=== PATIENT | female | born 1980 | race Caucasian/White ===

== ENCOUNTER 2019-08-25 23:30 | Emergency (ER) | payer MEDICAID, SELFPAY ==
--- NOTE | ~2019-08-25 | CT_ITS ---
EXAMINATION: CT facial bones wo con DATE: 08/26/2019 00:26 INDICATION: Head injury. TECHNIQUE: Computed tomography (CT) of the facial bones and maxillofacial region was performed withou t intravenous contrast. Automated exposure control and iterative reconstruction technique were employ ed. The dose-length product was 473.48 mGy-cm. COMPARISON: None. FINDINGS: There is left frontal scalp soft tissue swelling. There is mild mucosal thickening in the e thmoid and right maxillary sinuses. 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 There is rightwar d deviation of the nasal septum. No fracture. IMPRESSION: 1. No fracture. Reviewed, dictated and finalized at location A. IMPRESSION: 1. No fracture.
--- NOTE | ~2019-08-25 | CT_ITS ---
EXAMINATION: CT cervical spine wo con DATE: 08/26/2019 00:26 INDICATION: Head injury. TECHNIQUE: Computed tomography (CT) of the cervical spine was performed without intravenous contrast. Automated exposure control and iterative reconstruction technique were employed. The dose-length pro duct was 214.25 mGy-cm. COMPARISON: None FINDINGS: There is mild scarring at the lung apices. There is 10 degrees dextroscoliosis of cervical spine. Vertebral body heights and intervertebral disc heights are normal. There is a subchondral cyst in C1 left lateral mass. There is material in the esophagus. The following disc levels are specifica lly discussed: C2-C3: There is no uncovertebral joint osteoarthritis. There is mild bilateral facet joint osteoarthr itis. There is no neural foraminal stenosis. There is no central canal stenosis. C3-C4: There is mild right uncovertebral joint osteoarthritis. There is no facet joint osteoarthritis . There is no neural foraminal stenosis. There is no central canal stenosis. C4-C5: There is no uncovertebral joint osteoarthritis. There is no facet joint osteoarthritis. There is no neural foraminal stenosis. There is no central canal stenosis. C5-C6: There is no uncovertebral joint osteoarthritis. There is mild left facet joint osteoarthritis. There is no neural foraminal stenosis. There is no central canal stenosis. C6-C7: There is no uncovertebral joint osteoarthritis. There is no facet joint osteoarthritis. There is no neural foraminal stenosis. There is no central canal stenosis. C7-T1: There is no uncovertebral joint osteoarthritis. There is mild bilateral facet joint osteoarthr itis. There is no neural foraminal stenosis. There is no central canal stenosis. IMPRESSION: 1. No fracture. 2. Cervical dextroscoliosis. 3. Mild cervical spondylosis. Reviewed, dictated and finalized at location A.
--- NOTE | ~2019-08-25 | CT_ITS ---
EXAMINATION: CT brain wo con DATE: 08/26/2019 00:25 INDICATION: Unresponsive. TECHNIQUE: Computed tomography (CT) of the head was performed without intravenous contrast. The mA wa s adjusted according to patient size. Iterative reconstruction technique was employed. The dose-lengt h product was 681.00 mGy-cm. COMPARISON: None FINDINGS: There is no intracranial hemorrhage, acute infarction, or abnormal intracranial mass lesion . The ventricles are normal in size. There is mild mucosal thickening in the ethmoid sinuses. The orb its are normal. The mastoid air cells are normal. There is left frontal scalp soft tissue swelling. IMPRESSION: 1. Normal brain. Reviewed, dictated and finalized at location A. IMPRESSION: 1. Normal brain.
--- NOTE | ~2019-08-25 | XR_ITS ---
EXAMINATION: XR chest 1V portable DATE: 08/26/2019 01:28 INDICATION: Intubation. TECHNIQUE: A single frontal view of the chest was obtained. COMPARISON: None. FINDINGS: The chest demonstrates clear lungs without pneumonia, pleural effusion, or pneumothorax. Th e heart size is normal. The endotracheal tube tip is 9 mm above the payam directed toward the right mainstem bronchus. IMPRESSION: 1. Endotracheal tube tip 9 mm above the payam. Retraction is recommended. Reviewed, dictated and finalized at location A.
[2019-08-25] MEDS: NALOXONE HCL INJ 2 MG/2 ML AMP IV PUSH (23:32)
[2019-08-25 23:40] VITALS: BP 116/61; PULSE 147; RESP 14; TEMP 36.3; O2SAT 97
[2019-08-25] MEDS: SODIUM CHLORIDE 0.9% IV 1,000 ML 999 ML IV CONT (23:43)
[2019-08-25] MEDS: SODIUM CHLORIDE 0.9% IV 1,000 ML 100 ML IV CONT (23:55)
--- NOTE | 2019-08-26 00:03 | ECG_ITS ---
Measurements Intervals [place] Rate: 124 P: 63 TX: 128 QRS: 58 QRSD: 71 T: 55 QT: 333 QTc: 480 Interpretive Statements SINUS TACHYCARDIA MINIMAL Q WAVES- ANTEROLAT/INF LEADS BASELINE ARTIFACT- AVL, V1-V2 ABNORMAL ECG Electronically Signed On 08-26-2019 7:17:00 CDT by Addi Mccoy D.O.
--- NOTE | 2019-08-26 00:03 | ED.AMS ---
HPI - Altered Mental Status General Chief Complaint: Overdose Stated Complaint: overdose Time Seen by Provider: 08/25/19 23:43 History of Present Illness HPI narrative: 38-year-old female patient is brought to the ER by her and dropped here with the chief complaints of being unresponsive. Apparently the took off and has left a number behind for us to call him for any details. patient is unable to provide any history because of her mental status changes MD complaint: decreased responsiveness Related Data Home Medications Medication Instructions Recorded Confirmed ibuprofen [Motrin IB] 600 mg PO Q6H PRN 08/26/19 08/26/19 mexiletine 150 mg PO BID 08/26/19 08/26/19 oxycodone-acetaminophen 1 tablet PO Q4H PRN MDD 4 08/26/19 08/26/19 tramadol 50 mg PO Q4H 08/26/19 08/26/19 Allergies Allergy/AdvReac Type Severity Reaction Status Date / Time Unable to Assess Allergy Verified 08/26/19 00:21 Review of Systems Review of Systems: ROS unobtainable: Yes unobtainable due to mental status (altered , unresponsive ) Exam Narrative: Exam Narrative: The patient is unresponsive to any verbal or painful stimuli. She shows a sinus tach in the rate of 144 on the monitor and her blood pressure is normal. Her respiratory rate is 19 and pulse oximetry shows 100% on room air. She has some contusions to the forehead and the left periorbital area noted. There are no open areas on the head neck or face . Gag reflux is intact Chest wall and the torso does not show any contusions stated of breath sounds are audible bilaterally. Heart tones are normal and the rhythm is tachycardia Abdomen is soft active bowel sounds no obvious injuries. The perineum appears to be normal. Patient has several bruises to her lower extremities and again no deformities or open areas are noted. Course Course Emergency Course: The patient was given Narcan 2 mg IV and she did not show any response to that. Her respirations are becoming a little bit more sinus and she has been intubated with a 7 and half ET tube under direct laryngoscopy. The tube placement is confirmed by auscultation of breath sounds bilaterally. Chest x-ray is pending Procedures Intubation Intubation #1: Intubation Date: 08/26/19 Intubation Time: 00:46 Time out performed: Yes sedative: Versed (2 mg) Mg Given: 2 paralytic: Succinylcholine Mg Given: 100 Laryngoscope: Mercado Tube Size (cm): 7.5 Method of Intubation: orotracheal Number of Attempts: 2 Tube Secured Depth (cm): 23 Tube Secured Location: lips Tube Placement Confirmation: visualized tube passing through cords, equal breath sounds bilaterally, no breath sounds over epigastrium and confirmation by capnometry Patient Tolerated Procedure: well Intubation Complications: none Additional Comments: CXR confirms the tube at the payam MDM - Altered Mental Status MDM Narrative Medical decision making narrative: 38-year-old female patient apparently from out of town was dropped outside of the ER by her with chief complaints of patient passing out with a possible overdose. The the left the hospital however and communicating with him it seems like they had an argument regarding to him and he states that he took a walk and when he came back he found her in the car unresponsive in the van driver seat. the states that he tried to pick her up and put her in the passenger seat but he dropped a couple of times. But the is not consistent with the story. No information is available from the patient on account of her being completely unresponsive. She does have some signs of trauma to her head especially forehead and left periorbital area and to the extremities in the form of bruising. No open wounds are noted. The patient has been intubated and her diagnostic workup so far she indicates an elevated white cell
[2019-08-26 00:08] LABS: Basophils Absolute Auto 0.05 K/mm3 (0.00-0.10); Basophils Percent Auto 0.2 % (0.0-1.0); Eosinophils Absolute Auto 0.01 K/mm3 (0.02-0.50); Hematocrit 40.2 % (35.0-49.0); Hemoglobin 13.2 g/dL (12.0-15.0); Immature Granulocyte Absolute 0.15 K/mm3 (0.00-0.00); Immature Granulocyte Percent A 0.6 % (0.0-0.0); Lymphocytes Absolute Auto 1.39 K/mm3 (1.10-4.50); Lymphocytes Percent Auto 5.6 % (18.0-42.0); Mean Corpuscular HGB Conc 32.8 g/dL (32.0-36.0); Mean Corpuscular Hemoglobin 30.7 pg (27.0-31.0); Mean Corpuscular Volume 93.5 fL (78.0-102.0); Mean Platelet Volume 11.5 fl (9.2-11.8); Monocytes Absolute Auto 0.97 K/mm3 (0.10-0.90); Monocytes Percent Auto 3.9 % (2.0-11.0); Neutrophils Absolute Auto 22.4 K/mm3 (1.7-7.2); Neutrophils Percent Auto 89.7 % (50.0-70.0); Platelet Count Result 266 K/mm3 (150-420); Red Cell Distribution Width 14.5 % (11.6-14.4)
[2019-08-26 00:14] LABS: Acetaminophen 0 ug/mL (10-30); Alanine Aminotransferase 21 U/L (14-59); Albumin Level 4.2 g/dL (3.4-5.0); Alkaline Phosphatase 65 U/L (46-116); Bilirubin,Total 0.5 mg/dL (0.00-1.00); Calcium 8.9 mg/dL (8.5-10.1); Ethanol < 3 mg/dL (0-6); Glucose 148 mg/dL (70-99); Salicylate 4.2 mg/dL (2.8-20.0); Thyroid Stimulating Hormone 3.07 uIU/mL (0.36-3.74); Total Protein 8.2 g/dL (6.4-8.2); Troponin I < 0.02 ng/mL (0.00-0.056)
[2019-08-26 00:18] LABS: Amphetamine Screen Urine Positive (Negative); Anion Gap 17.7 mmol/L (7-16); Aspartate Amino Transferase 23 U/L (15-37); Barbiturate Screen Urine Negative (Negative); Benzodiazepines Screen Urine Negative (Negative); Blood Urea Nitrogen 10 mg/dL (7-18); Cannabinoid Screen Urine Negative (Negative); Carbon Dioxide 24 mmol/L (21-32); Chloride 100 mmol/L (98-108); Cocaine Screen Urine Negative (Negative); Estimated Glomerular Filt Rate > 60; Methadone Screen Urine Negative (Negative); Opiate Screen Urine Negative (Negative); Osmolality Calculated 288 mOsm/kg (285-295); Phencyclidine Screen Urine Negative (Negative); Potassium 3.7 mmol/L (3.5-5.1); Sodium 138 mmol/L (136-145)
[2019-08-26 00:19] LABS: Creatine Kinase 202 U/L (26-192)
--- NOTE | 2019-08-26 00:21 | PC.NURSE ---
returns from xray, per stretcher, snoring respirations. remains unresponsive to any stimuli .
[2019-08-26 00:22] LABS: Magnesium 1.9 mg/dL (1.8-2.4)
--- NOTE | 2019-08-26 00:25 | PC.NURSE ---
summer ferguson to assist with intubation and respiratory care.
--- NOTE | 2019-08-26 00:25 | PC.NURSE ---
[id number], male subject dropped off patient, stated was going to move car and left facility. [place] police called.
[2019-08-26 00:30] LABS: Add Urine Microscopic? YES; Appearance Urine Sl Cloudy (Clear); Bilirubin Urine Negative (Negative); Blood Urine Trace-Intact (Negative); Color Urine Yellow (Yellow); Glucose Urine UA Negative (Negative); Ketones Urine 3+ (Negative); Leukocyte Esterase Ur Negative (Negative); Nitrate Urine Positive (Negative); Protein Urine 1+ (Negative); RBC Urine 0-2 /hpf (0-2); Specific Grav Ur >= 1.030 (1.010-1.020); Squamous Epithelial Cell Urine Moderate /hpf (Few); Urobilinogen Urine 0.2 mg/dL (0.2-1.0); WBC Urine None seen /hpf (0-3); pH Urine 5.5 (5.0-8.0)
[2019-08-26 00:31] LABS: Bacteria Urine 2+ /hpf; Mucus Urine Moderate /lpf
[2019-08-26] MEDS: MIDAZOLAM HCL 2 MG/2 ML VIAL 4 MG IV PUSH (00:38)
--- NOTE | 2019-08-26 00:41 | PC.NURSE ---
2345 blood sugar 154
[2019-08-26] MEDS: PROPOFOL IV EMULSION 100 ML 1.65 MG IV CONT (00:45)
--- NOTE | 2019-08-26 00:51 | PC.NURSE ---
spoke with carlos at [facility] for transfer. ellen called for transport.
--- NOTE | 2019-08-26 01:09 | PC.NURSE ---
RSI Intubation for airway protection Medications given through the LAC 18 ga 00:30 Succinlycholine 100 mg 00:35 Versed 2 mg 00:38 Versed 2 mg 00:38 Fentanyl 50 mcg 00:45 Propofol infusion started 01:15 Fenantyl 50 mcg
[2019-08-26 02:01] VITALS: BP 109/85; PULSE 108; RESP 16; TEMP 36.6; O2SAT 100
--- NOTE | 2019-08-26 02:15 | PC.NURSE ---
Patient had the following obvious wounds: Left orbit bruising Left nare bruising Right orbit slighr redness Left scalp hematoma Multiple areas of bruising throughout both legs Multiple abrasions to multiple toes of both feet
--- NOTE | 2019-08-26 09:29 | PC.NURSE ---
0200 photos of patient injuries ( abrasions and bruising) take per officer reyes of [facility], [place]
== END 2019-08-26 02:05 | disposition short-term general hospital (02) ==
PROVIDERS: Emergency Provider Emergency Medicine
DX: G92 Toxic encephalopathy (principal); R41.82 Altered mental status, unspecified
CPT/HCPCS: 31500; 36415; 70450; 70486; 71045; 72125; 80053; 80307; 81001; 82550; 82553; 82948; 83735; 84443; 84484; 85025; 93005; 96365; 96368; 96374; 96375; 99283; 99285; J0330; J0696; J2250; J2310; J2704; J3010; J7030